=== PATIENT | female | born 1935 | race Caucasian/White ===

== ENCOUNTER 2016-10-07 16:19 | Emergency (ER) | payer MEDICARE ==
[~2016-10-07] VITALS: Ht 162.6 cm; Wt 104.3 kg
[2016-10-07 16:38] VITALS: BP 94/67
[2016-10-07 17:27] LABS: ALANINE AMINOTRANSFERASE 9 U/L (3-33); ALBUMIN/GLOBULIN RATIO 1.1 (1.0-2.7); ANION GAP 15 (5-15); ASPARTATE AMINO TRANSFERASE 14 U/L (5-40); CARBON DIOXIDE 26 mEQ/L (20-30); CHLORIDE 99 mEQ/L (98-107); CREATININE 5.2 mg/dL (0.5-0.9); HEMOLYSIS 11; POTASSIUM 4.8 mEQ/L (3.4-4.9); SODIUM 140 mEQ/L (135-145); TOTAL PROTEIN 7.2 g/dL (6.6-8.7)
[2016-10-07 17:33] LABS: TROPONIN I < 0.30 ng/mL (<=0.30)
[2016-10-07 17:38] LABS: CKMB 1.9 ng/mL (< 3.8)
[2016-10-07 17:42] LABS: MEAN CORPUSCULAR HEMOGLOBIN 35.4 PG (27.0-31.0); MEAN CORPUSCULAR HGB CONC 29.3 G/DL (32.0-36.0); MEAN CORPUSCULAR VOLUME 121 FL (80-99); MEAN PLATELET VOLUME 8.4 FL (6.5-10.1); PLATELET COUNT 183 K/UL (150-450); RED BLOOD COUNT 2.98 M/UL (4.20-5.40); WHITE BLOOD COUNT 10.3 K/UL (4.8-10.8)
[2016-10-07 17:52] LABS: ABG ALLEN TEST POSITIVE; ABG BASE EXCESS -1.6; ABG PCO2 83.7 mmHg (35.0-45.0)
--- NOTE | 2016-10-07 18:27 | Emergency Room Report ---
History of Present Illness General Chief Complaint: Altered Level of Consciousness Source: Patient, Family Member, EMS Present Illness HPI 81-year-old female presents to ED for evaluation. states that patient is more altered in usual x2 days. More weak. not eating. She lives at home. Patient has history of ESRD - gets dialysis Friday and Friday. Upon arrival. Patient states she feels okay. Denies any chest pain or shortness of breath. Denies any fevers or chills. Denies nausea or vomiting. Patient knows the date and time. No other aggravating or relieving factors. Denies any other associated symptoms Allergies: Coded Allergies: PENICILLINS (Verified Allergy, Unknown, 10/07/16) Patient History Past Medical History: DM, HTN, renal disease, dialysis Past Surgical History: none Pertinent Family History: none Social History: Denies: alcohol use, drug use, smoking Now: No Immunizations: UTD Reviewed Nursing Documentation: PMH: Agreed, PSxH: Agreed Nursing Documentation-PMH Past Medical History: No History, Except For Hx Cardiac Problems: Yes Hx Hypertension: Yes Hx Diabetes: Yes Hx Dialysis: Yes - , , FRI Review of Systems All Other Systems: negative except mentioned in HPI Physical Exam Vital Signs Date Time Temp Pulse Resp B/P Pulse Ox O2 Delivery O2 Flow Rate FiO2 10/07/16 16:17 97.2 62 18 94/67 100 Non-Rebreather 15.0 10/07/16 18:05 50 Sp02 EP Interpretation: reviewed, normal General Appearance: lethargic, obese Head: normocephalic Eyes: bilateral eye PERRL, bilateral eye normal inspection ENT: normal ENT inspection Neck: normal inspection Respiratory: chest non-tender, lungs clear, normal breath sounds, speaking full sentences Cardiovascular #1: regular rate, rhythm, no edema Gastrointestinal: normal bowel sounds, non tender, soft, non-distended, no guarding, no rebound Rectal: deferred Genitourinary: no CVA tenderness Musculoskeletal: normal inspection Neurologic: oriented x3, responsive, motor strength/tone normal, sensory intact , speech normal Psychiatric: normal inspection Skin: normal inspection Lymphatic: normal inspection Procedures Critical Care Time Critical Care Time i. I feel this is a highly complex case requiring extensive working including EKG/Rhythm strip, Xray/CT/US, Blood/urine lab work, repeat exams while in ED, and administration of strong opiates/narcotics for pain control, admission to hospital or close patient follow up. Total time: 30 min bedside evaluation and treatment excludes procedures (EKG). Reason for critical care: ALOC, hypercapnic Possible complications: hypotension, hypertension, NH, shock, arrhythmias, metabolic acidosis, end organ damage, respiratory failure. Interventions: Labs, EKG, chest x-ray. BiPAP. ABG Course: Patient brought in for ALOC. Hypoxic at home. On nonrebreather. History of ESRD. Chest x-ray shows cardiomegaly, effusion. BNP greater than 20 ,000, creatinine elevated, troponin okay, potassium okay. ABG shows hypercapnia CO2 greater than 80. Started on BiPAP. Consultations: nursing staff, EMS, family Performed by: Dr Renee Tolerated well condition = serious j. because of unstable vital signs this patient had a condition that could potentially threaten life or limb. I feel this is a critical patient who required my full attention while patient was considered critical. Total Critical Care Time excluding procedures was greater than 35 minutes Medical Decision Making Diagnostic Impression: Primary Impression: Hypercapnia Additional Impressions: ESRD (end stage renal disease) on dialysis Altered level of consciousness ER Course Hospital Course 81-year-old female presents to ED with ALOC, hypoxic initially at home Differential diagnoses include: pneumonia, sepsis, UTI, PTX Clinical course Patient placed on stretcher. on ring striker. After initial history and physical I ordered labs, EKG, chest x-ray, NRB labs reviewed- no leukocytosis, hemoglobin/hematocrit stable, creatinine elevated, potassium okay, troponins negative, BNP greater than 20,000 ABG shows profound acidosis with CO2 in the 80s. Started on BiPAP Chest x-ray- pulmonary congestion, cardiomegaly patient is anuric Repeat ABG shows improvement on BiPAP. patient is clinically more awake alert. Because of insurance patient will be transferred to [facility]. I feel this is a highly complex case requiring extensive working including EKG/Rhythm strip, Xray/CT/US, Blood/urine lab work, repeat exams while in ED, and administration of strong opiates/narcotics for pain control, admission to hospital or close patient follow up. Diagnosis -hypercapnia, ESRD, ALOC Transfer to [place] in serious condition Labs Test 10/07/16 16:45 10/07/16 17:43 White Blood Count 10.3 K/UL (4.8-10.8) Red Blood Count 2.98 M/UL (4.20-5.40) Hemoglobin 10.5 G/DL (12.0-16.0) Hematocrit 36.0 % (37.0-47.0) Mean Corpuscular Volume 121 FL (80-99) Mean Corpuscular Hemoglobin 35.4 PG (27.0-31.0) Mean Corpuscular Hemoglobin Concent 29.3 G/DL (32.0-36.0) Red Cell Distribution Width 17.0 % (11.6-14.8) Platelet Count 183 K/UL (150-450) Mean Platelet Volume 8.4 FL (6.5-10.1) Neutrophils (%) (Auto) % (45.0-75.0) Lymphocytes (%) (Auto) % (20.0-45.0) Monocytes (%) (Auto) % (1.0-10.0) Eosinophils (%) (Auto) % (0.0-3.0) Basophils (%) (Auto) % (0.0-2.0) Sodium Level 140 mEQ/L (135-145) Potassium Level 4.8 mEQ/L (3.4-4.9) Chloride Level 99 mEQ/L (98-107) Carbon Dioxide Level 26 mEQ/L (20-30) Anion Gap 15 (5-15) Blood Urea Nitrogen 19 mg/dL (7-23) Creatinine 5.2 mg/dL (0.5-0.9) Estimat Glomerular Filtration Rate mL/min (>60) Glucose Level 109 mg/dL (74-106) Lactic Acid Level 0.80 mmol/L (0.66-2.22) Calcium Level 9.0 mg/dL (8.6-10.2) Total Bilirubin 0.6 mg/dL (0.0-1.2) Aspartate Amino Transf (AST/SGOT) 14 U/L (5-40) Alanine Aminotransferase (ALT/SGPT) 9 U/L (3-33) Alkaline Phosphatase 58 U/L (35-104) Total Creatine Kinase 25 U/L (26-140) Creatine Kinase MB 1.9 ng/mL (< 3.8) Creatine Kinase MB Relative Index 7.6 Troponin I < 0.30 ng/mL (<=0.30) Pro-B-Type Natriuretic Peptide 63992 pg/mL (0-450) Total Protein 7.2 g/dL (6.6-8.7) Albumin 3.8 g/dL (3.5-5.2) Globulin 3.4 g/dL Albumin/Globulin Ratio 1.1 (1.0-2.7) Arterial Blood pH 7.155 (7.350-7.450) Arterial Blood Partial Pressure CO2 83.7 mmHg (35.0-45.0) Arterial Blood Partial Pressure O2 181.8 mmHg (75.0-100.0) Arterial Blood HCO3 28.8 mmol/L (22.0-26.0) Arterial Blood Oxygen Saturation 98.7 % (92.0-98.0) Arterial Blood Base Excess -1.6 Pete Test Positive EKG Diagnostic Results Rate: normal Rhythm: NSR, other - 1st degree av block ST Segments: no acute changes ASA given to the pt in ED: No Rhythm Strip Diag. Results EP Interpretation: yes Rhythm: NSR, no PVC's, no ectopy Chest X-Ray Diagnostic Results EP Interpretation: No Findings: no pneumothorax, no acute cardiopulmonary disease, other - cardiomegaly. b/l effusion Number of Views: 1 Last Vital Signs Date Time Temp Pulse Resp B/P Pulse Ox O2 Delivery O2 Flow Rate FiO2 10/07/16 18:05 88 16 Bi-pap 50 10/07/16 18:05 100 10/07/16 16:38 97.2 94/67 15.0 Status: improved Disposition: XFER SHT-TRM HOSP Condition: Serious Referrals: [facility] (PCP) CONG RENEE M.D. Oct 07, 2016 18:27
[2016-10-07 18:32] LABS: ANISOCYTOSIS 1+; BAND NEUTROPHILS % (MANUAL) 1 % (0-8); BASOPHILS % (MANUAL) 0 % (0-2); EOSINOPHILS % (MANUAL) 0 % (0-3); HYPOCHROMASIA 1+; LYMPHOCYTES % (MANUAL) 9 % (20-45); NEUTROPHILS % (MANUAL) 87 % (45-75); PLATELET ESTIMATE ADEQUATE; PLATELET MORPHOLOGY NORMAL; TOTAL CELLS COUNTED 100
[2016-10-07 18:49] VITALS: BP 84/67
[2016-10-07 19:15] LABS: ABG ALLEN TEST POSITIVE; ABG BASE EXCESS -4.2
[2016-10-07] MEDS ORDERED: Morphine Sulfate 2mg/ml Inj IVP ONE (19:45)
[2016-10-07 22:45] VITALS: BP 95/65
--- NOTE | 2016-10-08 13:51 | Diagnostic Imaging Report ---
Indication: SOB Technique: One view of the chest Comparison: 07/29/2007 Findings: Patient is rotated to the right, limiting evaluation. The heart is considerably enlarged. Increased opacity left lung base probably represents overlying soft tissue, but infiltrate not excludable. There is borderline interstitial congestion. There is some atelectasis in the right midlung. Impression: Limited exam. Possible mild interstitial congestion Cardiomegaly This agrees with the preliminary interpretation provided overnight by Dr. Cho
--- NOTE | 2016-11-09 03:27 | Cardiology Report ---
APPROVED REPORT EKG Measurement Heart [id number] Sinus rhythm with 1st degree AV block with premature atrial complexes Possible Anterior infarct, age undetermined Abnormal ECG
== END 2016-10-07 22:41 | disposition short-term general hospital (02) ==
LOC: EDBD 16:19 → EMR 17:09
DX: R06.89 Other abnormalities of breathing (principal); I12.0 Hypertensive chronic kidney disease with stage 5 chronic kidney disease or end stage renal disease; E11.22 Type 2 diabetes mellitus with diabetic chronic kidney disease; N18.6 End stage renal disease; R40.4 Transient alteration of awareness; Z99.2 Dependence on renal dialysis; Z88.0 Allergy status to penicillin; I51.7 Cardiomegaly
CPT/HCPCS: 36415; 36600; 71010; 80053; 82550; 82553; 82803; 83605; 83880; 84484; 85007; 85025; 86710; 87040; 93005; 94664; 96374; 96375; 99291; J2270; J7040

== ENCOUNTER 2016-12-27 21:21 | Emergency (ER) | payer MEDICARE ==
[~2016-12-27] VITALS: Ht 160 cm; Wt 181.4 kg
--- NOTE | 2016-12-27 21:35 | Emergency Room Report ---
History of Present Illness General Chief Complaint: Altered Level of Consciousness Source: Family Member, Medical Record, EMS Present Illness HPI This is a morbidly obese 81-year-old female with a history hypertension, renal failure hemodialysis Friday, , and Friday. She also has a history of atrial fibrillation on Coumadin. She presents with chief complaint of increasing shortness of breath and decreased mentation. Onset for last couple days. Worse tonight. Decreased appetite. No fever or chills. No trauma. No other complaint. Allergies: Coded Allergies: PENICILLINS (Verified Allergy, Unknown, 10/07/16) Uncoded Allergies: PENCILLIN (Allergy, Unknown, 12/27/16) Patient History Past Medical History: see triage record, old chart reviewed, HTN, AFib, renal disease, dialysis Past Surgical History: other Pertinent Family History: none Social History: Denies: smoking Last Menstrual Period: Unknown Now: No Immunizations: other Reviewed Nursing Documentation: PMH: Agreed, PSxH: Agreed Nursing Documentation-PMH Past Medical History: No History, Except For Hx Hypertension: Yes Hx Diabetes: Yes Hx Dialysis: Yes - T, T, S renal failure Review of Systems Constitutional: Reports: weakness Eye: Denies: blurred vision, eye pain ENT: Denies: ear pain, nose congestion, throat swelling Respiratory: Reports: shortness of breath, Denies: cough Cardiovascular: Denies: chest pain, palpitations Gastrointestinal: Denies: abdominal pain, diarrhea, nausea, vomiting Musculoskeletal: Denies: back pain, joint pain Skin: Denies: rash Neurological: Denies: headache, numbness Endocrine: Denies: increased thirst, increased urine Hematologic/Lymphatic: Denies: easy bruising All Other Systems: negative except mentioned in HPI Physical Exam Vital Signs Date Time Temp Pulse Resp B/P Pulse Ox O2 Delivery O2 Flow Rate FiO2 12/27/16 21:21 98.2 70 16 132/82 82 Non-Rebreather 15.0 vitals with hypoxia Sp02 EP Interpretation: abnormal General Appearance: moderate distress, Stupor Head: normocephalic, atraumatic Eyes: bilateral eye EOMI, bilateral eye PERRL ENT: hearing grossly normal, normal pharynx Neck: full range of motion, supple, no meningismus, other - JVD Respiratory: chest non-tender, normal breath sounds, rales Cardiovascular #1: no murmur, JVD, irregularly irregular Gastrointestinal: normal bowel sounds, non tender, no mass, no organomegaly, no bruit, non-distended Musculoskeletal: back normal, normal range of motion Neurologic: grossly normal Psychiatric: mood/affect normal Skin: warm/dry Procedures Critical Care Time Critical Care Time Critical care is mandated in this patient who presented with acute respiratory failure. Patient require my urgent intervention to attenuate the risks of metabolic collapse which may lead to cardiovascular collapse and . Critical care time is 35 minutes excluding any reportable procedure. Critical care time included evaluation, multiple reevaluation, looking at old charts, interpreting laboratory and diagnostic data, discussing case with patient and family and consultants, and charting. Additional Procedure Procedure Narrative Procedure: Left EJ IV access Indication: IV access Description: I placed an 18-gauge left EJ without any difficulty. This was done for at work and medication. Nursing staff had trouble getting an IV in this patient. Medical Decision Making Diagnostic Impression: Primary Impression: Acute on chronic respiratory failure with hypoxia and hypercapnia Additional Impressions: Morbid obesity with BMI of 70 and over, adult Atrial fibrillation, chronic ESRD (end stage renal disease) on dialysis Acute encephalopathy ER Course Patient presents with acute chronic respiratory failure. She is improving after BiPAP. She is much more alert now. Following commands. I discussed the case with her [place] doctor. Because of her respiratory status and pH, will admit her here. Laboratory Tests Test 12/27/16 21:31 12/27/16 21:34 12/27/16 23:10 Arterial Blood pH 6.965 (7.350-7.450) 7.044 (7.350-7.450) Arterial Blood Partial Pressure CO2 135.0 mmHg (35.0-45.0) *H 111.6 mmHg (35.0-45.0) *H Arterial Blood Partial Pressure O2 64.0 mmHg (75.0-100.0) L 52.2 mmHg (75.0-100.0) L Arterial Blood HCO3 30.0 mmol/L (22.0-26.0) H 29.8 mmol/L (22.0-26.0) H Arterial Blood Oxygen Saturation 83.2 % (92.0-98.0) L 85.2 % (92.0-98.0) L Arterial Blood Base Excess -4.8 -3.3 Pete Test Positive Positive White Blood Count 7.1 K/UL (4.8-10.8) Red Blood Count 3.16 M/UL (4.20-5.40) L Hemoglobin 11.4 G/DL (12.0-16.0) L Hematocrit 40.3 % (37.0-47.0) Mean Corpuscular Volume 127 FL (80-99) H Mean Corpuscular Hemoglobin 36.2 PG (27.0-31.0) H Mean Corpuscular Hemoglobin Concent 28.4 G/DL (32.0-36.0) L Red Cell Distribution Width 16.9 % (11.6-14.8) H Platelet Count 154 K/UL (150-450) Mean Platelet Volume 8.3 FL (6.5-10.1) Neutrophils (%) (Auto) 65.6 % (45.0-75.0) Lymphocytes (%) (Auto) 24.3 % (20.0-45.0) Monocytes (%) (Auto) 6.8 % (1.0-10.0) Eosinophils (%) (Auto) 2.0 % (0.0-3.0) Basophils (%) (Auto) 1.2 % (0.0-2.0) Prothrombin Time 22.7 SEC (9.30-11.50) H Prothromb Time International Ratio 2.2 (0.9-1.1) H Activated Partial Thromboplast Time 41 SEC (23-33) H Sodium Level 140 mEQ/L (135-145) Potassium Level 4.9 mEQ/L (3.4-4.9) Chloride Level 101 mEQ/L (98-107) Carbon Dioxide Level 28 mEQ/L (20-30) Anion Gap 11 (5-15) Blood Urea Nitrogen 9 mg/dL (7-23) Creatinine 4.1 mg/dL (0.5-0.9) H Estimat Glomerular Filtration Rate mL/min (>60) Glucose Level 122 mg/dL (74-106) H Lactic Acid Level 0.50 mmol/L (0.66-2.22) L Calcium Level 9.1 mg/dL (8.6-10.2) Total Bilirubin 0.6 mg/dL (0.0-1.2) Aspartate Amino Transf (AST/SGOT) 15 U/L (5-40) Alanine Aminotransferase (ALT/SGPT) 11 U/L (3-33) Alkaline Phosphatase 75 U/L (35-104) Total Creatine Kinase 42 U/L (26-140) Creatine Kinase MB 3.6 ng/mL (< 3.8) Creatine Kinase MB Relative Index 8.5 Troponin I < 0.30 ng/mL (<=0.30) Total Protein 6.9 g/dL (6.6-8.7) Albumin 3.9 g/dL (3.5-5.2) Globulin 3.0 g/dL Albumin/Globulin Ratio 1.3 (1.0-2.7) Lab Results Impression labs show severe CO2 retention EKG Diagnostic Results Rate: normal Rhythm: other - afib, rate 66 ST Segments: other - NSST changes Rhythm Strip Diag. Results EP Interpretation: yes Rate: 73 Rhythm: no PVC's, no ectopy, other Chest X-Ray Diagnostic Results EP Interpretation: Yes Findings: no consolidation, no effusion, no pneumothorax, no acute cardiopulmonary disease, other - Cardiomegaly Number of Views: 1 Last Vital Signs Date Time Temp Pulse Resp B/P Pulse Ox O2 Delivery O2 Flow Rate FiO2 12/27/16 21:21 98.2 70 16 132/82 82 Non-Rebreather 15.0 Status: improved Disposition: ADMITTED INPATIENT Condition: Critical ROSEANN LOVELL M.D. Dec 27, 2016 21:35
[2016-12-27 21:48] LABS: MEAN CORPUSCULAR HEMOGLOBIN 36.2 PG (27.0-31.0); MEAN CORPUSCULAR HGB CONC 28.4 G/DL (32.0-36.0); MEAN CORPUSCULAR VOLUME 127 FL (80-99); MEAN PLATELET VOLUME 8.3 FL (6.5-10.1); PLATELET COUNT 154 K/UL (150-450); RED BLOOD COUNT 3.16 M/UL (4.20-5.40); RED CELL DISTRIBUTION WIDTH 16.9 % (11.6-14.8); WHITE BLOOD COUNT 7.1 K/UL (4.8-10.8)
[2016-12-27 21:49] LABS: BASOPHILS % (AUTO) 1.2 % (0.0-2.0); LYMPHOCYTES % (AUTO) 24.3 % (20.0-45.0); MONOCYTES % (AUTO) 6.8 % (1.0-10.0); NEUTROPHILS % (AUTO) 65.6 % (45.0-75.0)
[2016-12-27 21:54] LABS: ABG ALLEN TEST POSITIVE; ABG BASE EXCESS -4.8
[2016-12-27 22:01] VITALS: BP 134/88
[2016-12-27 22:06] LABS: INR 2.2 (0.9-1.1); PROTHROMBIN TIME 22.7 SEC (9.30-11.50); TROPONIN I < 0.30 ng/mL (<=0.30)
[2016-12-27 22:09] LABS: ALANINE AMINOTRANSFERASE 11 U/L (3-33); ASPARTATE AMINO TRANSFERASE 15 U/L (5-40); CALCIUM 9.1 mg/dL (8.6-10.2); CARBON DIOXIDE 28 mEQ/L (20-30); CREATININE 4.1 mg/dL (0.5-0.9); TOTAL PROTEIN 6.9 g/dL (6.6-8.7)
[2016-12-27 22:10] LABS: ALBUMIN/GLOBULIN RATIO 1.3 (1.0-2.7); ANION GAP 11 (5-15); CHLORIDE 101 mEQ/L (98-107); HEMOLYSIS 3; POTASSIUM 4.9 mEQ/L (3.4-4.9); SODIUM 140 mEQ/L (135-145)
[2016-12-27 22:20] LABS: CKMB 3.6 ng/mL (< 3.8)
[2016-12-27 23:22] LABS: ABG ALLEN TEST POSITIVE; ABG BASE EXCESS -3.3; ABG PCO2 111.6 mmHg (35.0-45.0)
[2016-12-27 23:23] VITALS: BP 124/108
[2016-12-28] MEDS ORDERED: NYSTATIN15 GM TOPIC (00:38)
[2016-12-28] MEDS ORDERED: VITAMIN B-12500 MCG ORAL (00:38)
[2016-12-28] MEDS ORDERED: MIDODRINE HCL2.5 MG ORAL (00:38)
[2016-12-28] MEDS ORDERED: LIPITOR80 MG ORAL (00:40)
[2016-12-28] MEDS ORDERED: LEVOTHYROXINE150 MCG ORAL (00:40)
[2016-12-28] MEDS ORDERED: CITALOPRAM HBR20 M1 ORAL (00:40)
[2016-12-28] MEDS ORDERED: WARFARIN SODIUM2 MG ORAL (00:40)
[2016-12-28 00:59] VITALS: BP 168/135
[2016-12-28 01:40] VITALS: BP 182/140
[2016-12-28 02:25] LABS: ABG ALLEN TEST POSITIVE; ABG BASE EXCESS -1.8; ABG PCO2 59.1 mmHg (35.0-45.0)
[2016-12-28 02:40] VITALS: BP 134/95
[2016-12-28 04:09] VITALS: BP 123/64
[2016-12-28 05:17] VITALS: BP 110/53
[2016-12-28 05:32] VITALS: BP 110/53
--- NOTE | 2016-12-28 08:59 | Diagnostic Imaging Report ---
Indication: Altered mental status Technique: Continuous helical CT scanning of the head was performed without intravenous contrast material. Axial and coronal 5 mm sections were generated. Dose: Total Dose Length Product - DLP [address] Dose Index - CTDIvol(s) 70.38 mGy. Comparison: None Findings: There is prominence of cortical sulci and the ventricular system. Periventricular and subcortical white matter low density is present. There is opacification of the right mastoid sinus. A few ethmoids cells are also opacified. There is no shift of midline structures. No abnormal extra-axial fluid collections are noted. There is no evidence of intracerebral bleeding. No other abnormal high or low density areas are noted within the brain. Impression: Atrophy. Periventricular and subcortical white matter low density consistent with chronic small vessel white matter ischemic change. Opacification of the right mastoid sinus, likely inflammatory. Opacification of a few ethmoid cells, also likely inflammatory. The above report is concordant with preliminary reading by [facility] . The CT scanner at [facility] is accredited by the [employer] and the scans are performed using protocols designed to limit radiation exposure to as low as reasonably achievable to attain images of sufficient resolution adequate for diagnostic evaluation.
--- NOTE | 2016-12-30 09:07 | Diagnostic Imaging Report ---
Indication: SOB Technique: XRAY CHEST 1 V Comparison:10/07/2016 Findings: The heart remains enlarged. There remains a relatively straight margin in the right base with obscuration of the right heart border. There is prominent vascularity. No other change from previous exam. Impression: Cardiomegaly. Increased pulmonary vascularity consistent with congestive heart failure. Possible right middle lobe collapse.
--- NOTE | 2017-01-01 00:32 | Cardiology Report ---
APPROVED REPORT EKG Measurement Heart [id number] [place] P112 [id number] Atrial fibrillation Possible Anterior infarct, age undetermined Abnormal ECG
== END 2016-12-28 06:00 | disposition short-term general hospital (02) ==
LOC: EDBD 21:21 → EMR 21:32
DX: J96.22 Acute and chronic respiratory failure with hypercapnia (principal); J96.21 Acute and chronic respiratory failure with hypoxia; E66.01 Morbid (severe) obesity due to excess calories; Z68.45 Body mass index [BMI] 70 or greater, adult; I48.2 Chronic atrial fibrillation; I12.0 Hypertensive chronic kidney disease with stage 5 chronic kidney disease or end stage renal disease; E11.22 Type 2 diabetes mellitus with diabetic chronic kidney disease; N18.6 End stage renal disease; Z99.2 Dependence on renal dialysis; Z88.0 Allergy status to penicillin; Z79.01 Long term (current) use of anticoagulants; G93.40 Encephalopathy, unspecified
CPT/HCPCS: 36415; 36600; 70450; 71010; 80053; 82550; 82553; 82803; 83605; 84484; 85025; 85610; 85730; 87040; 87081; 93005; 96374; 96375; 99291; J0360